=== PATIENT | female | born 1980 | race Caucasian/White ===

== ENCOUNTER 2018-03-30 18:01 | Inpatient (IN) | payer SELFPAY ==
[2018-03-30] MEDS ORDERED: PROMETHAZINE 25 MG/ML VIAL ONE ×2 (19:15→20:38)
[2018-03-30] MEDS ORDERED: NA CHLORIDE 0.9% 1,000 ML ONE ×2 (19:15→23:29)
[2018-03-30] MEDS ORDERED: MEPERIDINE HCL 25 MG/0.5 ML ONE (19:15)
[2018-03-30 19:55] LABS: Potassium 3.9 mEq/L (3.6-5.0)
[2018-03-30 19:57] LABS: Absolute Lymphocytes (CBC) 1.6 K/uL (0.7-4.9); Absolute Monocytes 0.8 K/uL (0.1-1.3); Absolute Neutrophil 11.5 K/uL (1.8-8.0); Basophils % 0.4 % (0-1.3); Eosinophils % 0.4 % (0-4.4); Hematocrit 40.3 % (36.0-45.0); Lymphocytes % 11.3 % (15.3-44.8); MCH 20.5 pg (27.0-35.0); MPV 9.4 fL (7.6-11.3); Monocytes % 5.9 % (3.3-12.3)
[2018-03-30 20:01] LABS: Albumin 4.6 g/dL (3.2-5.5); Bilirubin Direct 0.1 mg/dL (0-0.2); Bilirubin Total 0.8 mg/dL (0.3-1.2); Protein, Total 7.9 g/dL (6.0-8.3)
[2018-03-30] MEDS ORDERED: FENTANYL CITR 100 MCG/2 ML ONE (20:39)
[2018-03-30 21:19] LABS: Urine Blood 3+ (NEG); Urine Glucose NEGATIVE (NEG); Urine Protein 3+ (NEG)
[2018-03-30 21:39] LABS: Platelet Estimate ADEQ; Urine White Blood Cell Casts OK
[2018-03-30 21:40] LABS: Blood Morphology Comment NOTED (NOT SEEN); Hypochromasia 1+; Ovalocytes 1+
--- NOTE | 2018-03-30 21:43 | RAD REPORT ---
EXAM DESCRIPTION: CT - Stone Protocol - 03/30/2018 9:30 pm CLINICAL HISTORY: Abdominal pain. Renal cell carcinoma COMPARISON: None. TECHNIQUE: Computed axial tomography of the abdomen pelvis was obtained without oral or IV contrast. Lack of IV and oral contrast limits evaluation of solid organs, bowel, and vessels. Coronal reformat diya images were obtained and reviewed. All CT scans are performed using dose optimization technique as appropriate and may include automated exposure control or mA/KV adjustment according to patient size. FINDINGS: A 3 millimeter calculus is present within the proximal left ureter Hounsfield unit 1070. M ild left hydronephrosis is seen. A right nephrectomy has been performed The liver, spleen, pancreas and adrenals appear grossly normal There is no evidence of diverticulitis. The appendix appears normal A small umbilical hernia is seen. A small hiatal hernia is seen. Gastric band remnant material is pre sent in the subcutaneous tissues IMPRESSION: 3 millimeter calculus in the proximal left ureter with mild left hydronephrosis
[2018-03-30] MEDS ORDERED: MEPERIDINE HCL 50 MG/ML AMP ONE (21:52)
[2018-03-30] MEDS ORDERED: TAMSULOSIN 0.4 MG SR CAP ONE (21:52)
[2018-03-30] MEDS ORDERED: CIPROFLOXACIN HCL 500 MG TAB ONE (21:52)
[2018-03-30] MEDS ORDERED: KETOROLAC 30 MG/ML INJ ONE (21:52)
[2018-03-31] MEDS ORDERED: CEFOXITIN SODIUM 1 GM/VIAL IVPB ONE (01:17)
[2018-03-31] MEDS ORDERED: ONDANSETRON 4 MG/2 ML VIAL IV PRN (01:17)
[2018-03-31] MEDS ORDERED: ACETAMINOPHEN 500 MG TAB PO PRN (01:17)
--- NOTE | 2018-03-31 01:19 | EDPHYS ---
Physician Documentation [facility] Name: Ana Thornton Age: 38 yrs Sex: Female : 1980 Arrival Date: 03/30/2018 Time: 18:04 Bed 4 Private MD: ED Physician Mark Main HPI: 03/31 00:00 This 38 yrs old Female presents to ER via Wheelchair with complaints of Left pm1 Flank Pain. 00:00 The patient complains of pain in the left low back. Radiation to left groin area. pm1 Onset: The symptoms/episode began/occurred just prior to arrival. Modifying factors: The symptoms are alleviated by nothing. the symptoms are aggravated by nothing. Associated signs and symptoms: Pertinent negatives: diarrhea, fever, nausea, vomiting. Severity of pain: in the emergency department the pain is actually worse. The patient has not experienced similar symptoms in the past. The patient has not recently seen a physician. Right renal cell carcinoma with right nephrectomy 12 years ago. . 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 - Social history:: Smoking status: Patient uses tobacco products, smokes one pack cigarettes per day. ROS: 03/31 00:00 Constitutional: Negative for fever, chills, and weight loss, Eyes: Negative for injury, pm1 pain, redness, and discharge, ENT: Negative for injury, pain, and discharge, Neck: Negative for injury, pain, and swelling, Cardiovascular: Negative for chest pain, palpitations, and edema, Respiratory: Negative for shortness of breath, cough, wheezing, and pleuritic chest pain, Abdomen/GI: Negative for abdominal pain, nausea, vomiting, diarrhea, and constipation. : Negative for injury, bleeding, discharge, and swelling, MS/Extremity: Negative for injury and deformity, Skin: Negative for injury, rash, and discoloration, Neuro: Negative for headache, weakness, numbness, tingling, and seizure. Back: Positive for flank pain, on the left. Exam: 00:00 Constitutional: This is a well developed, well nourished patient who is awake, alert, pm1 and in no acute distress. Head/Face: Normocephalic, atraumatic. Neck: Trachea midline, no thyromegaly or masses palpated, and no cervical lymphadenopathy. Supple, full range of motion without nuchal rigidity, or vertebral point tenderness. No Meningismus. Chest/axilla: Normal chest wall appearance and motion. Nontender with no deformity. No lesions are appreciated. Cardiovascular: Regular rate and rhythm with a normal S1 and S2. No gallops, murmurs, or rubs. Normal PMI, no JVD. No pulse deficits. Respiratory: Lungs have equal breath sounds bilaterally, clear to auscultation and percussion. No rales, rhonchi or wheezes noted. No increased work of breathing, no retractions or nasal flaring. Abdomen/GI: Soft, non-tender, with normal bowel sounds. No distension or tympany. No guarding or rebound. No evidence of tenderness throughout. 00:00 Skin: Warm, dry with normal turgor. Normal color with no rashes, no lesions, and no evidence of cellulitis. MS/ Extremity: Pulses equal, no cyanosis. Neurovascular intact. Full, normal range of motion. 00:00 Back: normal spinal alignment noted, CVA tenderness, is noted on the left. 00:00 Neuro: Orientation: is normal, Motor: is normal, moves all fours. Vital Signs: 03/30 18:14 BP 136 / 98; Pulse 70; Resp 22; Temp 97.5; Pulse Ox 99% on R/A; Weight 122.47 kg; aj Height 5 ft. 11 in. (180.34 cm); Pain 10/10; 19:46 BP 128 / 79; Pulse 47; Resp 17 S; Pulse Ox 100% on R/A; Pain 10/10; jd3 20:10 BP 135 / 70; Pulse 48; Resp 17 S; Pulse Ox 99% on R/A; jd3 21:21 BP 130 / 77; Pulse 51; Resp 16 S; Pulse Ox 98% on R/A; jd3 22:04 BP 118 / 64; Pulse 57; Resp 19 S; Pulse Ox 95% on R/A; Pain 9/10; jd3 23:05 BP 107 / 81; Pulse 52; Resp 16 S; Pulse Ox 100% on R/A; Pain 3/10; jd3 0512 00:10 BP 120 / 76; Pulse 51; Resp 16 S; Pulse Ox 100% on R/A; jd3 01:05 BP 119 / 86; Pulse 50; Resp 17 S; Pulse Ox 100% on R/A; jd3 02:22 BP 101 / 66; Pulse 54; Resp 16 S; Pulse Ox 97% on R/A; jd3 03/30 18:14 Body Mass Index 37.66 (122.47 kg, 180.34 cm) aj MDM: 03/30 18:54 Patient medically screened. pm1 22:40 Data reviewed: vital signs. Data interpreted: Pulse oximetry: on room air is 95 %. pm1 Interpretation: normal. Counseling: I had a detailed discussion with the patient and/or guardian regarding: the historical points, exam findings, and any diagnostic results supporting the discharge/admit diagnosis, lab results, radiology results, the need for outpatient follow up, for definitive care, a urologist, to return to the emergency department if symptoms worsen or persist or if there are any questions or concerns that arise at home. 03/31 01:10 ED course: Patient given IV fluid and has not been able to produce additional urine. pm1 Patient without any urine when straight catheterization performed. No urine present on bladder scanner. Small sample obtained from patient on initial presentation was only enough for UPT and urine dip. Not enough present from initial sample for urine microscopic sample and culture. Patient is not producing any urine due to obstruction. Will admit patient for evaluation and treatment by urologist. 01:12 Physician consultation: Gina Garza MD was called at 01:12, was contacted at 01:12, pm1 regarding consult, patient's condition, and will see patient tomorrow, Call laborer [facility] to add patient after [id number] case tomorrow. 01:18 Physician consultation: Artemio Rae MD was called at 01:19, was contacted at 01:19, pm1 regarding admission, patient's condition, and will see patient. 03/30 18:56 Order name: Basic Metabolic Panel; Complete Time: 20:10 pm1 03/30 18:56 Order name: CBC with Diff; Complete Time: 21:42 pm1 03/30 18:56 Order name: Hepatic Function; Complete Time: 20:10 pm1 03/30 18:56 Order name: Lipase; Complete Time: 20:10 pm1 03/30 18:56 Order name: Urine Microscopic Only pm1 03/30 20:39 Order name: Urine Dipstick--Ancillary (enter results); Complete Time: 21:42 cc 03/30 20:39 Order name: Urine --Ancillary (enter results); Complete Time: 21:42 cc 03/30 21:40 Order name: CBC Smear Scan; Complete Time: 21:42 EDMS 03/31 01:21 Order name: CBC with Automated Diff EDMS 03/31 01:21 Order name: CBC with Automated Diff EDMS 03/31 01:21 Order name: Comprehensive Metabolic Panel EDMS 03/31 01:21 Order name: Comprehensive Metabolic Panel EDMS 03/31 01:21 Order name: Magnesium EDMS 03/31 01:21 Order name: Magnesium EDMS 03/30 18:17 Order name: CT Stone Protocol; Complete Time: 21:46 aj 03/30 18:56 Order name: Urine Test (obtain specimen); Complete Time: 20:37 pm1 03/31 01:21 Order name: NPO EDMS 03/31 01:21 Order name: Phosphorus EDMS 03/31 01:21 Order name: Phosphorus EDMS 03/30 18:56 Order name: IV Saline Lock; Complete Time: 19:33 pm1 03/30 18:56 Order name: Labs collected and sent; Complete Time: 19:33 pm1 03/30 18:56 Order name: Urine Dipstick-Ancillary (obtain specimen); Complete Time: 20:37 pm1 Administered Medications: 03/30 19:32 Drug: Demerol 25 mg Route: IVP; Site: right antecubital; jd3 21:28 Follow up: Response: No adverse reaction jd3 19:32 Drug: Phenergan 12.5 mg Route: IVP; Site: right antecubital; jd3 21:29 Follow up: Response: No adverse reaction jd3 19:33 Drug: NS 0.9% 1000 ml Route: IV; Rate: 1000 ml; Site: right antecubital; jd3 03/31 02:17 Follow up: Response: No adverse reaction; IV Status: Completed infusion; IV Intake: jd3 1000ml 03/30 20:20 Drug: Phenergan 12.5 mg Route: IVP; Site: right antecubital; jd3 22:01 Follow up: Response: No adverse reaction jd3 20:20 Drug: fentaNYL (PF) 50 mcg Route: IVP; Site: right antecubital; jd3 22:01 Follow up: Response: No adverse reaction jd3 22:00 Drug: Cipro 500 mg Route: PO; jd3 23:27 Follow up: Response: No adverse reaction jd3 22:00 Drug: Demerol 50 mg Route: IVP; Site: right antecubital; jd3 23:27 Follow up: Response: Pain is decreased jd3 22:00 Drug: TORadol 30 mg Route: IVP; Site: right antecubital; jd3 23:27 Follow up: Response: Pain is decreased jd3 22:00 Drug: Flomax 0.4 mg Route: PO; jd3 23:27 Follow up: Response: Pain is decreased jd3 23:34 Drug: NS 0.9% 1000 ml Route: IV; Rate: 1000 ml; Site: right antecubital; jd3 03/31 01:25 Follow up: Response: No adverse reaction; IV Status: Completed infusion; IV Intake: jd3 1000ml 02:09 Drug: Demerol 50 mg Route: IVP; Site: right antecubital; jd3 02:17 Follow up: Response: No adverse reaction jd3 Disposition: 03/31/18 01:18 Hospitalization ordered by Artemio Rae for Observation. Preliminary diagnosis is Hydronephrosis with renal and ureteral calculous obstruction. - Bed requested for Telemetry/MedSurg (observation). - Status is Observation. jd3 - Condition is Stable. - Problem is new. - Symptoms have improved. UTI on Admission? No Addendum: 04/20/2018 07:03 Co-signature as Attending Physician, Mark Main MD I agree with the assessment and t w4 plan of care. Signatures: Dispatcher [employer] EDNessa Oconnor RN RN mw Myers, Amanda, RN RN aj Marinas, Patrick, SURVEY CHIEF SURVEY CHIEF pm1 Victoriano Shaikh RN RN jd3 Wadley, Terrence, MD MD tw4 Corrections: (The following items were deleted from the chart) 03/30 22:58 22:43 03/30/2018 22:43 Discharged to Home. Impression: 3 mm ureteral calculus in pm1 proximal left ureter with mild hydronephrosis. Condition is Stable. Forms are Medication Reconciliation Form, Thank You Letter, Antibiotic Education, Prescription Opioid Use. Follow up: Emergency Department; When: As needed; Reason: Worsening of condition. Follow up: Gina Garza; When: 2 - 3 days; Reason: Recheck today's complaints, Continuance of care, Re-evaluation by your physician. Problem is new. Symptoms have improved. pm1 03/31 01:29 01:18 Hospitalization Ordered by Artemio Rae MD for Observation. Preliminary mw diagnosis is Hydronephrosis with renal and ureteral calculous obstruction. Bed requested for Telemetry/MedSurg (observation). Status is Observation. Condition is Stable. Problem is new. Symptoms have improved. UTI on Admission? No. pm1 02:23 01:29 03/31/2018 01:18 Hospitalization Ordered by Artemio Rae MD for Observation. jd3 Preliminary diagnosis is Hydronephrosis with renal and ureteral calculous obstruction. Bed requested for Telemetry/MedSurg (observation). Status is Observation. Condition is Stable. Problem is new. Symptoms have improved. UTI on Admission? No. mw
--- NOTE | 2018-03-31 01:19 | ER ---
Nurse's Notes 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 Transition of care: patient was not received from another setting of care. Onset of symptoms was March 30, 2018. Care prior to arrival: None. 18:12 Method Of Arrival: Wheelchair aj 18:12 Acuity: JOSEFA 3 aj 21:29 Initial Sepsis Screen: Does the patient meet any 2 criteria? No. Patient's initial jd3 sepsis screen is negative. Does the patient have a suspected source of infection? No. Patient's initial sepsis screen is negative. Triage Assessment: 18:14 General: Appears in no apparent distress. uncomfortable, Behavior is calm, cooperative, aj appropriate for age. Pain: Complains of pain in posterior aspect of left lateral abdomen and anterior aspect of left lateral abdomen Pain currently is 10 out of 10 on a pain scale. Neuro: Level of Consciousness is awake, alert, obeys commands, Oriented to person, place, time, situation, Appropriate for age. Respiratory: Airway is patent Respiratory effort is even, unlabored, Respiratory pattern is regular, symmetrical. : Reports pain in left flank(s). Derm: Skin is intact, is healthy with good turgor, Skin is pink, warm \T\ dry. normal. 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 - Social history:: Smoking status: Patient uses tobacco products, smokes one pack cigarettes per day. Screenin:29 Abuse screen: Denies threats or abuse. Nutritional screening: No deficits noted. jd3 Tuberculosis screening: No symptoms or risk factors identified. Fall Risk IV access (20 points). Mental Status- Oriented to own ability (0 pts). Total Myers Fall Scale indicates No Risk (0-24 pts). Assessment: 19:33 General: Appears uncomfortable, Behavior is cooperative, appropriate for age, crying. jd3 Pain: Complains of pain in posterior aspect of left lateral abdomen Pain currently is 10 out of 10 on a pain scale. Quality of pain is described as sharp, Pain began suddenly, Is continuous, Also complains of nausea. Neuro: Level of Consciousness is awake, alert, obeys commands, Oriented to person, place, time, situation. Cardiovascular: Heart tones S1 S2 present Capillary refill < 3 seconds Patient's skin is warm and dry. Respiratory: Airway is patent Respiratory effort is even, unlabored, Respiratory pattern is regular, symmetrical, Breath sounds are clear bilaterally. GI: Abdomen is round Bowel sounds present X 4 quads. Abd is soft X 4 quads Abdomen is tender to palpation in anterior aspect of left lateral abdomen Reports nausea, vomiting. : No signs and/or symptoms were reported regarding the genitourinary system. EENT: No signs and/or symptoms were reported regarding the EENT system. Derm: Skin is intact, Skin is dry, Skin is normal, Skin temperature is warm. Musculoskeletal: Circulation, motion, and sensation intact. Range of motion: intact in all extremities. 20:10 Reassessment: Patient appears in no apparent distress at this time. Patient and/or jd3 family updated on plan of care and expected duration. Pain level reassessed. Patient is alert, oriented x 3, equal unlabored respirations, skin warm/dry/pink. 21:20 Reassessment: Patient appears in no apparent distress at this time. Patient and/or jd3 family updated on plan of care and expected duration. Pain level reassessed. Patient is alert, oriented x 3, equal unlabored respirations, skin warm/dry/pink. 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 22:00 Reassessment: Patient appears in no apparent distress at this time. Patient and/or jd3 family updated on plan of care and expected duration. Pain level reassessed. Patient is alert, oriented x 3, equal unlabored respirations, skin warm/dry/pink. pt reporting continued pain, provider notified, new orders received, see MAR. 23:05 Reassessment: Patient appears in no apparent distress at this time. Patient and/or jd3 family updated on plan of care and expected duration. Pain level reassessed. Patient is alert, oriented x 3, equal unlabored respirations, skin warm/dry/pink. Patient states feeling better. 03/31 00:10 Reassessment: Patient appears in no apparent distress at this time. Patient and/or jd3 family updated on plan of care and expected duration. Pain level reassessed. Patient is alert, oriented x 3, equal unlabored respirations, skin warm/dry/pink. pt resting in bed, even and unlabored respirations, no distress noted at this time. waiting for IV fluids and urine. 01:05 Reassessment: Patient appears in no apparent distress at this time. Patient and/or jd3 family updated on plan of care and expected duration. Pain level reassessed. Patient is alert, oriented x 3, equal unlabored respirations, skin warm/dry/pink. bladder scanner reviled no urine in the bladder, provider notified. provider at bedside discussing plan of care with pt. Vital Signs: 03/30 18:14 BP 136 / 98; Pulse 70; Resp 22; Temp 97.5; Pulse Ox 99% on R/A; Weight 122.47 kg; aj Height 5 ft. 11 in. (180.34 cm); Pain 10/10; 19:46 BP 128 / 79; Pulse 47; Resp 17 S; Pulse Ox 100% on R/A; Pain 10/10; jd3 20:10 BP 135 / 70; Pulse 48; Resp 17 S; Pulse Ox 99% on R/A; jd3 21:21 BP 130 / 77; Pulse 51; Resp 16 S; Pulse Ox 98% on R/A; jd3 22:04 BP 118 / 64; Pulse 57; Resp 19 S; Pulse Ox 95% on R/A; Pain 9/10; jd3 23:05 BP 107 / 81; Pulse 52; Resp 16 S; Pulse Ox 100% on R/A; Pain 3/10; jd3 /12 00:10 BP 120 / 76; Pulse 51; Resp 16 S; Pulse Ox 100% on R/A; jd3 01:05 BP 119 / 86; Pulse 50; Resp 17 S; Pulse Ox 100% on R/A; jd3 02:22 BP 101 / 66; Pulse 54; Resp 16 S; Pulse Ox 97% on R/A; jd3 03/30 18:14 Body Mass Index 37.66 (122.47 kg, 180.34 cm) ED Course: 03/30 18:04 Patient arrived in ED. mr 18:13 Triage completed. aj 18:14 Arm band placed on right wrist. Patient placed in waiting room, Patient notified of wait time. 18:37 Radiology exam delayed due to test not completed at this time. j 18:51 Gilles Matias, JONAS is PHCP. pm1 19:10 Victoriano Shaikh, PRUDENCIO is Primary Nurse. jd3 21:[address] via wheelchair. eh 21:28 CT completed. Pt tolerated procedure poorly. eh 21:29 Patient has correct armband on for positive identification. Bed in low position. Call j light in reach. Side rails up X2. Adult w/ patient. 21:30 CT Stone Protocol In Process Unspecified. EDMS 21:30 Patient moved back from CT. eh 22:41 Gina Garza MD is Referral Physician. pm1 22:44 Mark Main MD is Attending Physician. pm1 03/31 01:17 Artemio Rae MD is Hospitalizing Provider. pm1 02:15 No provider procedures requiring assistance completed. Patient admitted, IV remains in jd3 place. Administered Medications: 03/30 19:32 Drug: Demerol 25 mg Route: IVP; Site: right antecubital; jd3 21:28 Follow up: Response: No adverse reaction jd3 19:32 Drug: Phenergan 12.5 mg Route: IVP; Site: right antecubital; jd3 21:29 Follow up: Response: No adverse reaction jd3 19:33 Drug: NS 0.9% 1000 ml Route: IV; Rate: 1000 ml; Site: right antecubital; jd3 03/31 02:17 Follow up: Response: No adverse reaction; IV Status: Completed infusion; IV Intake: jd3 1000ml 03/30 20:20 Drug: Phenergan 12.5 mg Route: IVP; Site: right antecubital; jd3 22:01 Follow up: Response: No adverse reaction jd3 20:20 Drug: fentaNYL (PF) 50 mcg Route: IVP; Site: right antecubital; jd3 22:01 Follow up: Response: No adverse reaction jd3 22:00 Drug: Cipro 500 mg Route: PO; jd3 23:27 Follow up: Response: No adverse reaction jd3 22:00 Drug: Demerol 50 mg Route: IVP; Site: right antecubital; jd3 23:27 Follow up: Response: Pain is decreased jd3 22:00 Drug: TORadol 30 mg Route: IVP; Site: right antecubital; jd3 23:27 Follow up: Response: Pain is decreased jd3 22:00 Drug: Flomax 0.4 mg Route: PO; jd3 23:27 Follow up: Response: Pain is decreased jd3 23:34 Drug: NS 0.9% 1000 ml Route: IV; Rate: 1000 ml; Site: right antecubital; jd3 03/31 01:25 Follow up: Response: No adverse reaction; IV Status: Completed infusion; IV Intake: jd3 1000ml 02:09 Drug: Demerol 50 mg Route: IVP; Site: right antecubital; jd3 02:17 Follow up: Response: No adverse reaction jd3 Intake: 01:25 IV: 1000ml; Total: 1000ml. jd3 02:17 IV: 1000ml; Total: 2000ml. jd3 Outcome: 03/30 22:43 Discharge ordered by MD. pm1 03/31 01:18 Decision to Hospitalize by Provider. pm1 02:15 Admitted to Med/surg accompanied by nurse, via wheelchair, room 204, with chart, Report jd3 called to Deion FLANNERY 02:15 Condition: stable 02:15 Instructed on the need for admit, Demonstrated understanding of instructions. 02:23 Patient left the ED. jd3 Signatures: Dispatcher [employer] EDMS Maya Amato RN RN aj Rivera, Maria mr Crouch, Mazin Doyle Patrick, JONAS PROCESS TANK TENDER pm1 Victoriano Shaikh RN RN jd3 Corrections: (The following items were deleted from the chart) 03/30 21:25 21:15 Reassessment: Patient appears in no apparent distress at this time. Patient jd3 and/or family updated on plan of care and expected duration. Pain level reassessed. Patient is alert, oriented x 3, equal unlabored respirations, skin warm/dry/pink. jd3 21: 21:20 Reassessment: Patient appears in no apparent distress at this time. Patient jd3 and/or family updated on plan of care and expected duration. Pain level reassessed. Patient is alert, oriented x 3, equal unlabored respirations, skin warm/dry/pink. jd3 22:06 21:55 Reassessment: Patient appears in no apparent distress at this time. Patient jd3 and/or family updated on plan of care and expected duration. Pain level reassessed. Patient is alert, oriented x 3, equal unlabored respirations, skin warm/dry/pink. pt reporting continued pain, provider notified, new orders received, see MAR jd3
[2018-03-31] MEDS ORDERED: MEPERIDINE HCL 50 MG/ML AMP ONE (02:04)
[2018-03-31] MEDS ORDERED: CEFOXITIN/SWI 1gm 1 GM/10 ML SYR ONE (02:20)
[2018-03-31] MEDS: NA CHLORIDE 0.9% 1,000 ML IV SCH ×2 (02:48→15:20)
[2018-03-31] MEDS ORDERED: NA CHLORIDE 0.9% 1,000 ML IV ONE (03:10)
[2018-03-31] MEDS: MEPERIDINE HCL 25 MG/0.5 ML IV PRN ×4 (05:51→18:12)
[2018-03-31] MEDS ORDERED: Ringers Lactate 1,000 ML IV ONE (06:38)
[2018-03-31] MEDS ORDERED: PROPOFOL 200 MG/20 ML VIAL IV ONE (06:46)
[2018-03-31] MEDS ORDERED: LIDOCAINE 2% MPF 5 ML VIAL ONE (06:47)
[2018-03-31] MEDS ORDERED: FENTANYL CITR 100 MCG/2 ML ONE (06:50)
[2018-03-31] MEDS ORDERED: ONDANSETRON HCL 40 MG/20 ML VIAL ONE (07:03)
[2018-03-31] MEDS ORDERED: DEXAMETHASONE 10 MG/ML VIAL ONE (07:03)
[2018-03-31] MEDS ORDERED: EPINEPHrine 1 MG/10 ML SYR ONE (07:12)
--- NOTE | 2018-03-31 07:21 | P.HP ---
Certification for Inpatient Patient admitted to: Observation With expected LOS: <2 Midnights Patient will require the following post-hospital care: None Practitioner: I am a practitioner with admitting privileges, knowledge of patient current condition, hospital course, and medical plan of care. Services: Services provided to patient in accordance with Admission requirements found in Title 42 Section 412.3 of the Code of Federal Regulations Patient History Date of Service: 03/31/18 Reason for admission: Nephrolithiasis with flank tenderness; obstructive uropathy History of Present Illness: Patient is a 38-year-old female came to the hospital with left-sided flank tenderness. The pain radiated down to her groin area. Patient states that the pain started yesterday. It was sudden in and got progressively worse. CT of the abdomen revealed a very small 3 mm stone on the left ureter. Patient was seen by the ER physician and started on IV fluids. Will continue IV fluids and get urology consultation. Patient will need a cystoscopy with possible stent placement. At this time patient will be admitted to the hospital for aggressive IV hydration and pain control. Allergies morphine Allergy (Verified 03/31/18 01:32) Itching/Hives/Rash Home Medications: Duloxetine HCl [Cymbalta] 60 mg PO BID 03/31/18 Levothyroxine Sodium [Synthroid] 0.125 mg PO DAILY 03/31/18 - Past Medical/Surgical History Has patient received pneumonia vaccine in the past: Yes Diabetic: No -: renal cell carcinoma -: hypothyroidism -: migraines -: lap band -: right kidney removal - Family History Father Family History: Reviewed- Non-Contributory - Social History Smoking Status: Heavy Tobacco smoker (>10 cigarettes/day) Alcohol use: No CD- Drugs: No Caffeine use: Yes Place of Residence: Home Review of Systems 10-point ROS is otherwise unremarkable Physical Examination - Vital Signs Temperature: 97.8 F Blood Pressure: 141/79 Pulse: 50 Respirations: 16 Pulse Ox (%): 100 - Physical Exam General: Alert, In no apparent distress, Oriented x3 HEENT: Atraumatic, PERRLA, Mucous membr. moist/pink, EOMI, Sclerae nonicteric Neck: Supple, 2+ carotid pulse no bruit, No LAD, Without JVD or thyroid abnormality Respiratory: Clear to auscultation bilaterally, Normal air movement Cardiovascular: Regular rate/rhythm, Normal S1 S2 Gastrointestinal: Normal bowel sounds, Soft and benign, Non-distended, Tenderness (Left-sided flank tenderness) Musculoskeletal: No clubbing, No swelling, No tenderness Integumentary: No rashes Neurological: Normal gait, Normal speech, Normal strength at 5/5 x4 extr, Normal tone, Sensation intact, Cranial nerves 3-12 intact, Normal affect Lymphatics: No axilla or inguinal lymphadenopathy - Studies Laboratory Data (last 24 hrs) 03/30/18 19:25: WBC 14.1 H, Hgb 12.7, Hct 40.3, Plt Count 242 03/30/18 19:25: Sodium 140, Potassium 3.9, BUN 20, Creatinine 1.34 H, Glucose 123 H, Total Bilirubin 0.8, AST 16, ALT 13, Alkaline Phosphatase 64, Lipase 21 L Assessment & Plan - Problems (Diagnosis) (1) Obstructive uropathy Current Visit: Yes Status: Acute (2) Nephrolithiasis Current Visit: Yes Status: Acute (3) Hydronephrosis Current Visit: Yes Status: Acute (4) History of renal cell carcinoma Current Visit: Yes Status: Acute - Plan 1. NPO after midnight 2. Aggressive IV hydration 3. Urology consultation with cystoscopy and possible stent placement 4. IV antibiotic therapy 5. Pain control 6. Strict blood pressure and blood sugar control 7. Monitor labs closely 8. GI and DVT prophylaxis Possible discharge home after intervention if okay with Urology - Advance Directives Does patient have a Living Will: No Does patient have a Durable POA for Healthcare: No - Code Status/Comfort Care Code Status Assessed: Yes Code Status: Full Code Critical Care: No Time Spent Managing PTS Care (In Minutes): 45
[2018-03-31] MEDS ORDERED: EPHEDRINE SULF 50 MG/ML SYR ONE (07:22)
--- NOTE | 2018-03-31 07:49 | CON ---
History Of Present Illness: This is a 38-year-old lady who has a history of solitary left kidney. S he is status post right radical nephrectomy for renal carcinoma elsewhere. She was playing [employer] today and suddenly presented with left flank pain of 2 hours duration. When she was seen in the ER , a CT scan was done showing a 3-mm stone in the left proximal ureter with Hounsfield units over 1000 . She is not making much urine, so she is admitted for a stent placement and pain control. Being th at the fact that she has a solitary kidney, this is an emergency. Past Medical History: Last menstrual period of 03/04/2018. Also history of renal cell carcinoma, hy pothyroidism, and migraines. Allergies: TO MORPHINE. Home Medications: Cymbalta and Synthroid. Past Surgical History: Right radical nephrectomy, lap band surgery. Immunizations: Up to date. Review of Systems: A 10-point review of systems is otherwise normal. Physical Examination: Vital Signs: Height is 5 feet 11 inches, weight 122 kg, BP 136/98, pulse 70, respirations 22. HEENT: Atraumatic, normocephalic. Lungs: Clear. Heart: S1 and S2. Abdomen: Soft, nontender. Positive left flank tenderness. Extremities: Normal range of motion. Laboratory Data: Reviewed. Her UA showed a pH 6.0, specific gravity of 1.020, 3+ blood, nitrite neg ative, leukocyte trace. Chemistries; sodium 140, potassium 3.9, chloride 106, carbon dioxide 25, BUN 20, creatinine 1.3, GFR 45, glucose 123, calcium 9.5. Hematology; white count 14.1, H and H 12.7 an d 40.3, platelet 242. Assessment: A 38-year-old lady with solitary left kidney with a 3-mm stone in left proximal ureter, not making much urine. Plan: For a cystoscopy stent placement and then she may need ESWL later. All the information, alter natives, risks were reviewed and the patient wishes to proceed. DANTE/NAYAN Voice ID: [id number] Report ID: [id number]
[2018-03-31 08:26] LABS: Absolute Lymphocytes (CBC) 0.9 K/uL (0.7-4.9); Absolute Monocytes 0.6 K/uL (0.1-1.3); Absolute Neutrophil 9.2 K/uL (1.8-8.0); Basophils % 0.4 % (0-1.3); Eosinophils % 0.5 % (0-4.4); Hematocrit 37.1 % (36.0-45.0); Lymphocytes % 8.2 % (15.3-44.8); MCH 20.2 pg (27.0-35.0); MCV 64.8 fL (80-100); MPV 9.2 fL (7.6-11.3); Monocytes % 5.5 % (3.3-12.3); RBC Red Blood Cell Count 5.73 M/uL (3.86-4.86)
[2018-03-31] MEDS: CEFTRIAXONE/SWI 1gm 1 GM/10 ML SYR IV SCH (09:00)
[2018-03-31] MEDS ORDERED: ENOXAPARIN 30 MG/0.3 ML SQ SCH (09:00)
[2018-03-31] MEDS ORDERED: CEFTRIAXONE 1 GM/NS 50 ML 1 GM/50 ML BAG IV SCH (09:00)
[2018-03-31 09:03] LABS: Albumin 3.9 g/dL (3.2-5.5); Bilirubin Total 0.9 mg/dL (0.3-1.2); Phosphorus 4.9 mg/dL (2.5-4.3); Potassium 4.7 mEq/L (3.6-5.0); Protein, Total 6.6 g/dL (6.0-8.3)
--- NOTE | 2018-03-31 09:41 | RAD REPORT ---
EXAM DESCRIPTION: RAD - Urethrocystogrphy Retrograde - 03/31/2018 8:49 am FINDINGS: Abdominal fluoroscopy performed. Multiple portable C-arm views were obtained during fluoroscopic assisted retrograde left ureteral gra m and stent placement. Assessment is limited when only selected images are available. Correlation is needed with findings at real-time. No unexpected findings confirmed.
[2018-03-31] MEDS: NICOTINE 21 MG/PAT TD SCH (12:57)
[2018-03-31] MEDS ORDERED: FENTANYL CITR 100 MCG/2 ML IV ONE (15:19)
[2018-03-31] MEDS: HYDROCODONE/APAP 10/325 TAB PO PRN ×2 (15:36→20:32)
--- NOTE | 2018-03-31 18:16 | OP ---
Surgeon: Gina Garza MD Anesthesiologist: Dr. Leggett. Preoperative Diagnosis: A 3 mm left ureteropelvic junction stone, solitary kidney, no urine output. Postoperative Diagnosis: A 3 mm left ureteropelvic junction stone, solitary kidney, no urine output. Procedures Performed: Cystoscopy, left retrograde pyelogram, insertion of double-J stent 6 x 30. Anesthesia: General. Estimated Blood Loss: Minimal. Replacement: See record. Path Specimen: None. Complications: None. Findings: Immediate output of urine via the stent upon placement. Indication: A 38-year-old lady, who has status post right radical nephrectomy in [place], presente d with a 3 mm stone left UPJ causing pain over the last 24 hours. No urine output to minimal urine o utput. She was consented for cystoscopy, left retrograde pyelogram, insertion of double-J stent. Al tim the general information, alternatives, and risks were reviewed. She wishes to proceed with the regla logan. She was concerned about ARDS of the lung, which she had last time when she had a bariatric regla logan. The etiology for that is not clear. Procedure In Detail: She was taken to the operating room, and placed in a supine lithotomy position. Area was prepped and draped, entered the urethra with a 22-Palauan obturator scope. The bladder was scoped with 70-degree lens and a 30 degree lens. Left orifice was found, cannulated with a 5-Palauan ureteral catheter. Contrast was inserted per urethra up to when obstruction was seen approximately L2 area by the UPJ. The wire was then placed in the renal pelvis and the double-J stent was placed o tan the guidewire coaxially in standard fashion making a coil in the proximal renal pelvis as well as in the bladder once the wire was removed immediately. Good output of urine was seen. The string wa s left attached outside the urethral meatus. The patient tolerated the procedure well and went to re covery room in stable condition. PB/MODL Voice ID: [id number] Report ID: [id number]
[2018-03-31] MEDS: KETOROLAC 30 MG/ML INJ IV PRN (22:20)
[2018-03-31] MEDS: PHENAZOPYRIDINE 100MG TAB PO SCH (23:56)
[2018-04-01] MEDS: MEPERIDINE HCL 25 MG/0.5 ML IV PRN ×4 (01:54→20:03)
[2018-04-01] MEDS ORDERED: LORazepam 2 MG/ML VIAL IV ONE ×2 (02:00→06:30)
[2018-04-01] MEDS: NA CHLORIDE 0.9% 1,000 ML IV SCH ×2 (05:59→18:00)
[2018-04-01] MEDS: PHENAZOPYRIDINE 100MG TAB PO SCH ×4 (06:00→23:23)
--- NOTE | 2018-04-01 07:05 | P.PN ---
Subjective Date of Service: 04/01/18 Subjective: Improving (Still having abdominal pain; patient is somewhat better. Possible discharge home if okay with neurology. Renal function has improved. Patient states only thing that helps is Toradol. Concern with giving Toradol because of history of renal cell carcinoma and patient with 1 kidney. Will discuss with Urology regarding plan of care at the time of discharge.) Review of Systems 10-point ROS is otherwise unremarkable Physical Examination - Vital Signs Temperature: 98.0 F Blood Pressure: 124/69 Pulse: 73 Respirations: 20 Pulse Ox (%): 98 - Physical Exam General: Alert, In no apparent distress, Oriented x3 HEENT: Atraumatic, PERRLA, EOMI Neck: Supple, JVD not distended Respiratory: Clear to auscultation bilaterally, Normal air movement Cardiovascular: Regular rate/rhythm, Normal S1 S2 Gastrointestinal: Normal bowel sounds, Tenderness Musculoskeletal: No clubbing, No swelling, No tenderness Integumentary: No rashes Neurological: Normal speech, Normal tone, Normal affect Lymphatics: No axilla or inguinal lymphadenopathy - Studies Laboratory Data (last 24 hrs) 03/31/18 08:16: Sodium 140, Potassium 4.7, BUN 25 H, Creatinine 2.63 H D, Glucose 113, Phosphorus 4.9 H, Magnesium 2.0, Total Bilirubin 0.9, AST 19, ALT 11, Alkaline Phosphatase 57 03/31/18 08:16: WBC 10.8 D, Hgb 11.6 L, Hct 37.1, Plt Count 205 Medications List Reviewed: Yes Assessment & Plan - Problems (Diagnosis) (1) Obstructive uropathy Current Visit: Yes Status: Acute (2) Nephrolithiasis Current Visit: Yes Status: Acute (3) Hydronephrosis Current Visit: Yes Status: Acute (4) History of renal cell carcinoma Current Visit: Yes Status: Acute - Plan 1. Status post J-stent placement 2. Continue with IV hydration 3. Urology consultation appreciated 4. Continue with IV antibiotic therapy 5. Continue with Pain control 6. Strict blood pressure and blood sugar control 7. Monitor renal function closely 8. Resume home medications 9. GI and DVT prophylaxis Possible discharge home today if okay with Urology Discharge Plan: Home Plan to discharge in: 24 Hours - Advance Directives Does patient have a Living Will: No Does patient have a Durable POA for Healthcare: No - Code Status/Comfort Care Code Status: Full Code Critical Care: No Time Spent Managing PTS Care (In Minutes): 25
[2018-04-01 08:25] LABS: Absolute Lymphocytes (CBC) 3.2 K/uL (0.7-4.9); Absolute Monocytes 0.6 K/uL (0.1-1.3); Absolute Neutrophil 6.2 K/uL (1.8-8.0); Basophils % 0.3 % (0-1.3); Eosinophils % 0.5 % (0-4.4); Hematocrit 33.3 % (36.0-45.0); Lymphocytes % 31.8 % (15.3-44.8); MCH 20.2 pg (27.0-35.0); MCV 65.3 fL (80-100); MPV 9.3 fL (7.6-11.3); Monocytes % 6.1 % (3.3-12.3); RBC Red Blood Cell Count 5.09 M/uL (3.86-4.86)
[2018-04-01] MEDS: DULOXETINE 30 MG CAP PO SCH ×2 (08:35→20:04)
[2018-04-01] MEDS: KETOROLAC 30 MG/ML INJ IV PRN ×2 (08:35→23:18)
[2018-04-01] MEDS: NICOTINE 21 MG/PAT TD SCH (08:35)
[2018-04-01] MEDS: LEVOTHYROXINE SOD 0.125 MG TAB PO SCH (08:35)
[2018-04-01] MEDS: OXYBUTYNIN ER 5 MG TAB PO SCH (08:35)
[2018-04-01] MEDS: CEFTRIAXONE/SWI 1gm 1 GM/10 ML SYR IV SCH (08:37)
[2018-04-01] MEDS: MAGNESIUM HYDROXIDE 8% 30 ML PO PRN ×2 (10:39→20:03)
--- NOTE | 2018-04-01 12:46 | RAD REPORT ---
EXAM DESCRIPTION: RAD - Abdomen 1 View (KUB) - 04/01/2018 9:09 am CLINICAL HISTORY: Stent placement COMPARISON: 03/30/2018 FINDINGS: The bowel gas pattern is non-obstructive. No evidence of free air or pneumatosis. Cholecys tectomy clips seen. A lap band port is in place. Left-sided double-J stent is in place with no calcifications seen along the stent. No significant bony findings. IMPRESSION: Left-sided double-J stent is in place with no calcifications seen along the course of th e stent.
--- NOTE | 2018-04-01 13:31 | PN ---
Objective: The patient is responding better to the Toradol, but she has solitary kidney, so do not have to give too much of this whereas the best thing is helping her pain. Objective: Vital Signs: Temperature 98.0, pulse 73, respirations 20, BP 124/69 , saturation 98%. Laboratory Data: White count 10.1, H and H 10 and 33, platelet count 185. Chemistry, creatinine are down to 1.1 from high of 2.6. The stent does help a lot with that. GFR is up from 45 to 56. Assessment: Solitary left kidney with 3 mm stone. Plan: To do a KUB today to check the stone location. She is planned to do ESWL on Monday, so we will keep her until Monday. Once the stone has been broken, I believe it will be safe to remove the stent in 1 week. DANTE/NAYAN Voice ID: [id number] Report ID: [id number] MTDHarshil
[2018-04-01] MEDS: clonazePAM 0.5 MG TAB PO PRN ×2 (15:41→23:17)
[2018-04-02] MEDS: OXYBUTYNIN ER 5 MG TAB PO SCH (09:25)
[2018-04-02] MEDS: DULOXETINE 30 MG CAP PO SCH (09:25)
[2018-04-02] MEDS: LEVOTHYROXINE SOD 0.125 MG TAB PO SCH (09:26)
[2018-04-02] MEDS: CEFTRIAXONE/SWI 1gm 1 GM/10 ML SYR IV SCH (09:26)
[2018-04-02] MEDS: NICOTINE 21 MG/PAT TD SCH (09:26)
[2018-04-02] MEDS: NA CHLORIDE 0.9% 1,000 ML IV SCH (09:27)
[2018-04-02] MEDS: MEPERIDINE HCL 25 MG/0.5 ML IV PRN ×2 (09:29→13:55)
[2018-04-02] MEDS: KETOROLAC 30 MG/ML INJ IV PRN (11:44)
--- NOTE | 2018-04-02 13:34 | P.PN ---
Subjective Date of Service: 04/02/18 Chief Complaint: Nephrolithiasis with flank tenderness; obstructive uropathy Pt seen and examined at bedside. Currently doing well. Has been going down to smoke. Pt educated on Smoking cessation and need to not smoke before the surgery david. Pt demonstrated understanding. Awaiting lithotripsy david. Review of Systems General: As per HPI Physical Examination - Vital Signs Temperature: 98.3 F Blood Pressure: 139/82 Pulse: 70 Respirations: 18 Pulse Ox (%): 100 - Physical Exam General: Alert, In no apparent distress HEENT: Atraumatic, PERRLA, EOMI Neck: Supple, JVD not distended Respiratory: Clear to auscultation bilaterally, Normal air movement Cardiovascular: Regular rate/rhythm, Normal S1 S2 Gastrointestinal: Normal bowel sounds, No tenderness Musculoskeletal: No tenderness Integumentary: No rashes Neurological: Normal speech, Normal tone, Normal affect Lymphatics: No axilla or inguinal lymphadenopathy - Studies Medications List Reviewed: Yes Assessment & Plan - Problems (Diagnosis) (1) Nephrolithiasis Onset Date: 04/02/18 Current Visit: Yes Status: Acute Plan: Left sided neohrolithiasis with Hydronephrosis and obstructive uropathy -Currently S/p Stent Placement POD # 1 with Urology -Doing well overall -Awaiting Lithotripsy david AM -IV fluids and NPO after midnight. (2) Obstructive uropathy Onset Date: 04/02/18 Current Visit: Yes Status: Acute Plan: See # 1. With RADHA -BUN/CR improving today (3) Hydronephrosis Onset Date: 04/02/18 Current Visit: Yes Status: Acute Plan: With RADHA -BUN/CR improving -IV fluids Qualifiers: Hydronephrosis type: with renal calculous obstruction Qualified Code(s): N13.2 - Hydronephrosis with renal and ureteral calculous obstruction (4) History of renal cell carcinoma Current Visit: Yes Status: Acute (5) Tobacco abuse Current Visit: Yes Status: Acute Plan: Educated on Tobacco cessation specially here in the hospital due to risk of respiratory failure during procedure. Discharge Plan: Home Plan to discharge in: 24 Hours - Code Status/Comfort Care Code Status Assessed: Yes Critical Care: No
--- NOTE | 2018-04-02 13:40 | RAD REPORT ---
EXAM DESCRIPTION: CT - Abdomen Pelvis Wo Contrast - 04/02/2018 1:26 pm CLINICAL HISTORY: Abdominal pain COMPARISON: March 30, 2018 TECHNIQUE: Computed axial tomography of the abdomen and pelvis was obtained. IV and oral contrast we re not requested. All CT scans are performed using dose optimization technique as appropriate and may include automated exposure control or mA/KV adjustment according to patient size. FINDINGS: The evaluation of solid organs, vessels and bowel is limited secondary to the lack of con trast administration. A left ureteral stent has been placed since the prior exam. The hydronephrosis has resolved. A ureter al calculus is not seen. A calculus within the left kidney is not noted. A bladder calculus is not se en. A right nephrectomy has been performed. The liver, spleen, pancreas and adrenals appear grossly normal. The appendix is normal. There is no evidence of diverticulitis. A minimal amount of free fluid is pre sent within the pelvis. IMPRESSION: Placement of a left ureteral stent with resolution of the left hydronephrosis. The left ureteral calculus is not seen
--- NOTE | 2018-04-02 14:12 | PN ---
Report on CAT scan did not find a stone by the stent or in the renal system. I believe the stone may have crushed up with the stent, so we will go ahead and remove her stent and she can go home. We can give her Toradol 10 mg to #4 take p.r.n., lots of water, normal ice tea. She should drink half her body weight, 18 ounces of water per day. Follow up p.r.n. DANTE/NAYAN Voice ID: [id number] Report ID: [id number] MTDD
--- NOTE | 2018-04-02 14:35 | P.DS ---
Admission Date: 03/31/18 Discharge Date: 04/02/18 Disposition: ROUTINE DISCHARGE Discharge Condition: GOOD Reason for Admission: Nephrolithiasis with flank tenderness; obstructive uropathy Consultations: Urology Procedures: Cystoscopy - Problems (1) Nephrolithiasis Onset Date: 04/02/18 Current Visit: Yes Status: Acute (2) Obstructive uropathy Onset Date: 04/02/18 Current Visit: Yes Status: Acute (3) Hydronephrosis Onset Date: 04/02/18 Current Visit: Yes Status: Acute Qualifiers: Hydronephrosis type: with renal calculous obstruction Qualified Code(s): N13.2 - Hydronephrosis with renal and ureteral calculous obstruction (4) History of renal cell carcinoma Current Visit: Yes Status: Acute (5) Tobacco abuse Current Visit: Yes Status: Acute Brief History of Present Illness: Patient is a 38-year-old female came to the hospital with left-sided flank tenderness. The pain radiated down to her groin area. Patient states that the pain started yesterday. It was sudden in and got progressively worse. CT of the abdomen revealed a very small 3 mm stone on the left ureter. Patient was seen by the ER physician and started on IV fluids. Will continue IV fluids and get urology consultation. Patient will need a cystoscopy with possible stent placement. At this time patient will be admitted to the hospital for aggressive IV hydration and pain control. Hospital Course: Overall during the hospital stay patient main stable Patient was initially admitted to the hospital for left-sided flank pain and nausea and vomiting. Patient was found to have left-sided nephrolithiasis with hydronephrosis and obstructive uropathy. Urology was consulted. Patient was kept on IV fluids and had a Donaldson catheter placed. Patient also had a cystoscopy done here in the hospital with stent placement which improved her symptoms markedly. Patient's BUN and creatinine also improved and patient was doing well overall. Patient was then educated extensively on tobacco abuse and she kept in repeatedly going downstairs to smoke while here in the hospital. Patient demonstrated understanding and stated that she would not go downstairs however when she has the urge she cannot control it. Nicotine patch was offered however patient declined at this time. Patient was then discharged home under stable condition was asked to follow up with urology outpatient to get the lithotripsy scheduled. Urology agreed with the above plan and patient was thus discharged home with pain medication. Vital Signs/Physical Exam: Temp Pulse Resp BP Pulse Ox 98.3 F 70 18 139/82 100 04/02/18 13:34 04/02/18 13:34 04/02/18 13:34 04/02/18 13:34 04/02/18 13:34 General: Alert, In no apparent distress HEENT: Atraumatic, PERRLA, EOMI Neck: Supple, JVD not distended Respiratory: Clear to auscultation bilaterally, Normal air movement Cardiovascular: Regular rate/rhythm, Normal S1 S2 Gastrointestinal: Normal bowel sounds, No tenderness Musculoskeletal: No tenderness Integumentary: No rashes Neurological: Normal speech, Normal tone, Normal affect Lymphatics: No axilla or inguinal lymphadenopathy Laboratory Data at Discharge: WBC 10.1 K/uL (4.3-10.9) 04/01/18 08:09 Hgb 10.3 g/dL (12.0-15.0) L 04/01/18 08:09 Hct 33.3 % (36.0-45.0) L 04/01/18 08:09 Plt Count 185 K/uL (152-406) 04/01/18 08:09 Sodium 140 mEq/L (135-145) 04/01/18 08:09 Potassium 4.0 mEq/L (3.6-5.0) 04/01/18 08:09 BUN 20 mg/dL (6-20) 04/01/18 08:09 Creatinine 1.10 mg/dL (0.44-1.00) H 04/01/18 08:09 Glucose 100 mg/dL (65-120) 04/01/18 08:09 Phosphorus 4.9 mg/dL (2.5-4.3) H 03/31/18 08:16 Magnesium 2.0 mg/dL (1.8-2.5) 03/31/18 08:16 Total Bilirubin 0.9 mg/dL (0.3-1.2) 03/31/18 08:16 AST 19 IU/L (10-42) 03/31/18 08:16 ALT 11 IU/L (10-60) 03/31/18 08:16 Alkaline Phosphatase 57 IU/L (42-121) 03/31/18 08:16 Lipase 21 U/L (22-51) L 03/30/18 19:25 Home Medications: Duloxetine HCl [Cymbalta] 60 mg PO BID 03/31/18 Levothyroxine Sodium [Synthroid] 0.125 mg PO DAILY 03/31/18 Patient Discharge Instructions: OK TO DC IV AND DC HOME. FOLLOW-UP WITH PRIMARY CARE PROVIDER IN 1-2 WEEKS. FOLLOW-UP WITH UROLOGY IN 1 WEEK. RETURN TO THE ER IF SYMPTOMS WORSENS. CALL or TEXT DR. BOSE AT [phone] IF ANY QUESTIONS REGARDING HOSPITAL STAY. PLEASE CALL THE FLOOR AT [phone] IF ANY MEDICATION OR NURSING QUESTIONS. Diet: Regular Activity: Fall precautions Followup: Gina Garza MD [ACTIVE - CAN ADMIT] - 1 Week
--- NOTE | 2018-04-02 17:32 | PN ---
Subjective: The patient is feeling well. We have warned her not to go outside and smoke anymore tyson or to her surgery. KUB that was done showed the stent in good position, but the stone is not visible , so we will get a CT scan to see the stone is still around versus that is hiding someplace else in t he collecting system. If her stone is gone, her stent can be removed and she can be discharged. If her stone is still there, she will need a ureteroscopy to extract the stone. DANTE/NAYAN Voice ID: [id number] Report ID: [id number]
== END 2018-04-02 15:25 | disposition home or self-care (01) | DRG 694 ==
LOC: ER 18:01 → ERHOLD 03-31 01:39 → 2ND 03-31 01:45 → OBSVTOIN 03-31 10:32
PROVIDERS: ADMIT Hospitalist; ATTEND Family Medicine
PROC: BT1FZZZ Fluoroscopy of Left Kidney, Ureter and Bladder (ICD-10-PCS; 2018-03-31)
PROC: 0T778DZ Dilation of Left Ureter with Intraluminal Device, Via Natural or Artificial Opening Endoscopic (ICD-10-PCS; principal; 2018-03-31 07:00)
DX: N13.2 Hydronephrosis with renal and ureteral calculous obstruction (principal); E03.9 Hypothyroidism, unspecified; F17.200 Nicotine dependence, unspecified, uncomplicated; Z85.528 Personal history of other malignant neoplasm of kidney
CPT/HCPCS: 36415; 51610; 74018; 74176; 74450; 76377; 80048; 80053; 80076; 81003; 81025; 82565; 83690; 83735; 84100; 84520; 85025; 96361; 96374; 96375; 99285; G0378; J0171; J0694; J0696; J1100; J2175; J2405; J2550; J3010; J7030; Q9967